=== PATIENT | female | born 1980 | race Caucasian/White ===

== ENCOUNTER 2017-01-19 14:25 | Emergency (ER) | payer MEDICAID ==
[~2017-01-19] VITALS: Ht 157.5 cm; Wt 106.0 kg
[2017-01-19 16:06] VITALS: BP 136/70
== END 2017-01-19 18:20 | disposition home or self-care (01) ==
LOC: ER 18:19
DX: M54.5 Low back pain (principal); M25.561 Pain in right knee; M25.562 Pain in left knee
CPT/HCPCS: 81025; 99283; Z7610